=== PATIENT | male | born 1950 | race Caucasian/White ===

== ENCOUNTER 2019-02-01 06:52 | Day surgery (SDC) | payer BC, MEDICARE ==
[2019-02-01] MEDS ORDERED: Sodium Chloride 0.9% 1,000 ML IV SCH (07:30)
[2019-02-01] MEDS ORDERED: fentaNYL 100 MCG/2 ML SDV ONE (08:08)
[2019-02-01] MEDS ORDERED: Midazolam 1 MG/ML 2 ML SDV ONE (08:08)
[2019-02-01] MEDS ORDERED: Propofol 200 MG/20 ML SDV ONE ×5 (08:08→09:15)
[2019-02-01 11:04] VITALS: BP 140/92
--- NOTE | 2019-02-02 10:43 | PROC ---
DATE OF PROCEDURE: 02/01/2019 SURGEON: Neeraj Brown MD INDICATION: Amy is a 68-year-old male who comes in with a history of colonic polyps. He is in for a colonoscopy. The risks and benefits were explained to the patient. He was taken to the OR. PROCEDURE IN DETAIL: Anesthesia was given by nurse composing room machinist apprentice. During the procedure, we used 100 mcg of fentanyl, 2 mg of Versed, and 800 mg of propofol. The Olympus 180AL scope was used. It was placed in the rectum and advanced under direct vision. Examination of the rectum with a gloved finger was unremarkable, prior to the procedure. The tube was advanced; at 35 cm, noted a polyp, we advanced and got to the cecum. Upon retraction of the tube, we noted a polyp at 55 cm that was harvested with a polypectomy snare. We came back, at 50 cm, noted two more, one was harvested and the other one was snared and then was destroyed by cautery. There was bleeding noted at that area. Cautery was performed to stop the bleeding. We then retracted the tube back to 35 cm, noted a large polyp, 3 to 4 cm in size. This was snared, removed and harvested. The first three polyps were 7 mm in size. The fourth one was 1 cm in size. The tube was slowly retracted and good observation was done of the rest of the mucosa. No obvious pathology was noted. The tube was removed. The patient tolerated the procedure well. PREOPERATIVE DIAGNOSIS: History of polyps. POSTOPERATIVE DIAGNOSIS: Four polyps; one polyp at 55, two at 50, and one at 35 cm. Three were then sent to the pathologist for identification. This gentleman needs another colonoscopy in 1 to 3 years, depending on the results of the biopsies by the pathologist. Neeraj Brown MD /[id number]
== END 2019-02-01 11:00 | disposition home or self-care (01) ==
LOC: JP.SDS 06:52
PROVIDERS: ATTEND Internal Medicine
DX: Z12.11 Encounter for screening for malignant neoplasm of colon (principal); D12.5 Benign neoplasm of sigmoid colon; E78.5 Hyperlipidemia, unspecified; K21.9 Gastro-esophageal reflux disease without esophagitis; F32.9 Major depressive disorder, single episode, unspecified; G89.29 Other chronic pain; E66.9 Obesity, unspecified; Z68.41 Body mass index [BMI] 40.0-44.9, adult; Z88.8 Allergy status to other drugs, medicaments and biological substances; Z86.010 Personal history of colon polyps; Z87.891 Personal history of nicotine dependence
CPT/HCPCS: 45385; 45388; J2250; J2704; J3010; J7030; 88305

== ENCOUNTER 2019-09-04 02:51 | Emergency (ER) | payer BC, MEDICARE ==
[2019-09-04 03:16] VITALS: BP 171/96; PULSE 107
[2019-09-04] MEDS ORDERED: Sodium Chloride 0.9% 10 ML Syringe FLUSH PRN (03:25)
[2019-09-04] MEDS ORDERED: Ketorolac 30 MG/ML SDV IVPUSH ONE (03:26)
--- NOTE | 2019-09-04 03:32 | EDM.PDOC ---
ED HPI GENERAL MEDICAL PROBLEM - General Chief Complaint: Upper Extremity Injury/Pain Stated Complaint: LEFT SHOULDER DISLOCATED Time Seen by Provider: 09/04/19 03:15 Source of Information: Reports: Patient History Limitations: Reports: No Limitations - History of Present Illness INITIAL COMMENTS - FREE TEXT/NARRATIVE: 69 yo male here with a suspected L shoulder dislocation. Has a pHx of recurrent shoulder dislocations that he usually can reduce himself. Was getting into bed around 7pm tonight and he dislocated it and has not been able to reduce it. Drove himself to the ER. Onset: Sudden Onset Date: 09/03/19 Onset Time: 19:00 Duration: Hour(s):, Constant Location: Reports: Upper Extremity, Left Quality: Reports: Ache Severity: Moderate Improves with: Reports: Immobilization Worsens with: Reports: Movement Context: Reports: Other (See HPI) Associated Symptoms: Reports: No Other Symptoms Treatments TOBACCO SAMPLE PULLER: Reports: Other (see below) (none) Left Shoulder Pain Score (Numeric/FACES): 7 - Related Data Allergies Allergy/AdvReac Type Severity Reaction Status Date / Time Iodinated Contrast Media Allergy Itching Verified 09/04/19 02:56 [Iodinated Contrast Media - IV Dye] lisinopril Allergy Swelling Verified 09/04/19 02:56 Home Meds: Home Meds amLODIPine [Norvasc] 10 mg PO DAILY 10/02/13 [History] cloNIDine [Catapres] 0.6 mg PO QID 10/02/13 [History] Insulin Glargine,Hum.Rec.Anlog [Yareli Ruizostar] 36 unit SQ DAILY 01/30/19 [ History] Insulin Lispro [HumaLOG] 1 unit SQ ACBED PRN 01/30/19 [History] Levothyroxine [Synthroid] 100 mcg PO ACBREAKFAST 01/30/19 [History] Metoprolol Succinate 50 mg PO DAILY 01/30/19 [History] metFORMIN [Glucophage] 1,000 mg PO DAILY 01/30/19 [History] sitaGLIPtin Phos/Metformin HCl [Janumet 50-1,000 MG] 1 each PO DAILY 01/30/19 [ History] Doxepin HCl 150 mg PO BEDTIME 02/01/19 [History] atorvaSTATin Calcium [Atorvastatin Calcium] 10 mg PO DAILY 06/06/19 [History] Past Medical History HEENT History: Reports: Impaired Vision, Other (See Below) Other HEENT History: tinnitus. deviated septum Cardiovascular History: Reports: High Cholesterol, Hypertension Respiratory History: Reports: Bronchitis, Recurrent, Sleep Apnea Gastrointestinal History: Reports: Colon Polyp, Hemorrhoids Genitourinary History: Reports: Pyelonephritis, Other (See Below) Other Genitourinary History: some renal impairment Musculoskeletal History: Reports: Back Pain, Chronic, Fracture, Other (See Below ) Other Musculoskeletal History: fx L leg Neurological History: Reports: Concussion Psychiatric History: Reports: Depression Endocrine/Metabolic History: Reports: Diabetes, Type II, Hyperthyroidism, Obesity/BMI 30+ Dermatologic History: Reports: Other (See Below) Other Dermatologic History: 5 episodes of infection in blood - Infectious Disease History Infectious Disease History: Reports: Chicken Pox, Measles, Mumps - Past Surgical History HEENT Surgical History: Reports: Cataract Surgery Cardiovascular Surgical History: Reports: None Respiratory Surgical History: Reports: None GI Surgical History: Reports: Colonoscopy Male Surgical History: Reports: None Endocrine Surgical History: Reports: None Neurological Surgical History: Reports: Laminectomy, Other (See Below) Musculoskeletal Surgical History: Reports: Other (See Below) Other Musculoskeletal Surgeries/Procedures:: back surgeries x2 Social & Family History - Family History Family Medical History: Noncontributory - Tobacco Use Smoking Status *Q: Current Every Day Smoker Years of Tobacco use: 40 Packs/Tins Daily: 0.5 Used Tobacco, but Quit: Yes Month/Year Tobacco Last Used: February2019 Second Hand Smoke Exposure: No - Caffeine Use Caffeine Use: Reports: Soda - Alcohol Use Days Per Week of Alcohol Use: 0 - Recreational Drug Use Recreational Drug Use: No Review of Systems - Review of Systems Review Of Systems: See Below Constitutional: Reports: No Symptoms Musculoskeletal: Reports: Shoulder Pain (left) Skin: Reports: No Symptoms Neurological: Reports: No Symptoms ED EXAM, GENERAL - Physical Exam Exam: See Below Exam Limited By: No Limitations General Appearance: Alert, WD/WN, No Apparent Distress Extremities: Limited Range of Motion (L shoulder), Other (L shoulder appears grossly normal. Unable to raise L arm past horizontal. ). No: Normal Range of Motion, Non-Tender (some pain at rest L shoulder, more with movement attempts.) , No Pedal Edema Neurological: Alert, Oriented, CN II-XII Intact, Normal Cognition Psychiatric: Normal Affect, Normal Mood Skin Exam: Warm, Dry, Intact, Normal Color, No Rash Course - Vital Signs Text/Narrative:: sling applied. Last Recorded V/S: Last Vital Signs Temp 35.5 C 09/04/19 03:15 Pulse 107 H 09/04/19 03:15 Resp 16 09/04/19 03:15 BP 171/96 H 09/04/19 03:15 Pulse Ox 97 09/04/19 03:15 - Orders/Labs/Meds Orders: Active Orders 24 hr Category Date Time Status Sodium Chloride 0.9% [Saline Flush] Med 09/04/19 03:25 Active 10 ml FLUSH ASDIRECTED PRN Saline Lock Insert [OM.PC] Routine Oth 09/04/19 03:25 Ordered Medication Orders Sodium Chloride (Saline Flush) 10 ml FLUSH ASDIRECTED PRN PRN Reason: Keep Vein Open Last Admin: 09/04/19 03:46 Dose: 10 ml Meds: Medications Generic Name Dose Route Start Last Admin Trade Name Freq PRN Reason Stop Dose Admin Sodium Chloride 10 ml 09/04/19 03:25 09/04/19 03:46 Saline Flush FLUSH 10 ml ASDIRECTED PRN Administration Keep Vein Open Discontinued Medications Generic Name Dose Route Start Last Admin Trade Name Freq PRN Reason Stop Dose Admin Acetaminophen 1,000 mg 09/04/19 03:48 Tylenol Extra Strength PO 09/04/19 03:49 ONETIME ONE Ketorolac Tromethamine 15 mg 09/04/19 03:26 09/04/19 03:45 Toradol IVPUSH 09/04/19 03:27 15 mg ONETIME ONE Administration - Radiology Interpretation Free Text/Narrative:: L shoulder [id number]: 1. No acute osseous injuries or abnormalities are noted. Dictated by Alhaji Khalil MD @ 09/04/2019 3:47:40 AM Departure - Departure Time of Disposition: 04:05 Disposition: Home, Self-Care 01 Condition: Fair Clinical Impression: Rotator cuff dysfunction Qualifiers: Laterality: left Qualified Code(s): M67.912 - Unspecified disorder of synovium and tendon, left shoulder - Discharge Information *PRESCRIPTION DRUG MONITORING PROGRAM REVIEWED*: No *COPY OF PRESCRIPTION DRUG MONITORING REPORT IN PATIENT AMEYA: No Instructions: How to Use a Sling, [id number] Referrals: Neeraj Brown Sr, MD [Primary Care Provider] - Forms: ED Department Discharge Additional Instructions: Wear sling at all times. Take ibuprofen 400 mg every 6 hrs and acetaminophen 1000 mg every 6 hrs for pain relief. Follow up with orthopedics for further evaluation and treatment, someone will contact you with an appt. Sepsis Event Note - Evaluation Sepsis Screening Result: No Definite Risk - Focused Exam Vital Signs: Vital Signs Temp Pulse Resp BP Pulse Ox 09/04/19 03:15 35.5 C 107 H 16 171/96 H 97 Date Exam was Performed: 09/04/19 Time Exam was Performed: 03:51 - My Orders Last 24 Hours: My Active Orders 09/04/19 03:25 Sodium Chloride 0.9% [Saline Flush] 10 ml FLUSH ASDIRECTED PRN Saline Lock Insert [OM.PC] Routine - Assessment/Plan Last 24 Hours: My Active Orders 09/04/19 03:25 Sodium Chloride 0.9% [Saline Flush] 10 ml FLUSH ASDIRECTED PRN Saline Lock Insert [OM.PC] Routine
[2019-09-04] MEDS ORDERED: Acetaminophen 500 MG Tab PO ONE (03:48)
--- NOTE | 2019-09-04 03:49 | CRLCR ---
INDICATION: Shoulder pain TECHNIQUE: Shoulder radiograph 3 views left COMPARISON: 11/29/2016 FINDINGS: Bone: No acute fractures or aggressive bone lesions are identified. Joint: Joint space narrowing with subchondral mentation and large osteophytes are present in the glenohumeral joint, consistent with osteoarthritis. The appearance is similar to prior exam. The acromioclavicular joint is unremarkable. Soft tissue: Unremarkable. The visualized hemithorax is unremarkable in appearance. No radiopaque foreign bodies are seen. IMPRESSION: 1. No acute osseous injuries or abnormalities are noted. Dictated by Alhaji Khalil MD @ 09/04/2019 3:47:40 AM Dictated by: Alhaji Khalil MD @ 09/04/2019 03:47:46 (Electronically Signed)
== END 2019-09-04 04:10 | disposition home or self-care (01) ==
LOC: JP.ED 02:51
DX: M67.912 Unspecified disorder of synovium and tendon, left shoulder (principal); I10 Essential (primary) hypertension; E78.00 Pure hypercholesterolemia, unspecified; E11.9 Type 2 diabetes mellitus without complications; E66.9 Obesity, unspecified; F32.9 Major depressive disorder, single episode, unspecified; F17.210 Nicotine dependence, cigarettes, uncomplicated; Z88.8 Allergy status to other drugs, medicaments and biological substances; Z91.041 Radiographic dye allergy status; Z79.899 Other long term (current) drug therapy; Z79.4 Long term (current) use of insulin
CPT/HCPCS: 73030; 96374; 99283; A9270; J1885

== ENCOUNTER 2019-09-19 07:49 | Day surgery (SDC) | payer BC, MEDICARE ==
[~2019-09-19 07:49] MED LIST: Povidone-Iodine 10% Soln 118.25 ML Bottle ONE
[2019-09-19] MEDS: Nozin Nasal Sanitizer NASBOTH SCH ×4 (08:14→22:00)
[2019-09-19] MEDS ORDERED: fentaNYL 250 MCG/5 ML SDV ONE ×2 (08:21→13:41)
[2019-09-19] MEDS ORDERED: Dexamethasone 4 MG/ML SDV ONE (08:22)
[2019-09-19] MEDS ORDERED: Rocuronium 50 MG/5 ML Vial ONE ×2 (08:22→14:28)
[2019-09-19] MEDS ORDERED: Neostigmine Methylsulfate 1 MG/ML 5 ML Syringe ONE (08:22)
[2019-09-19] MEDS ORDERED: Propofol 200 MG/20 ML SDV ONE (08:22)
[2019-09-19] MEDS ORDERED: Succinylcholine 200 MG/10 ML MDV ONE (08:22)
[2019-09-19] MEDS ORDERED: Glycopyrrolate 0.2 MG/ML 5 ML MDV ONE (08:22)
[2019-09-19] MEDS ORDERED: Ondansetron 4 MG/2 ML SDV ONE (08:22)
[2019-09-19] MEDS ORDERED: ceFAZolin 2 GM in Premix Bag 1 BAG IV ONE (08:30)
[2019-09-19] MEDS ORDERED: Lactated Ringers 1,000 ML IV SCH (08:30)
[2019-09-19] MEDS ORDERED: Bupivacaine 0.5% 30 ML SDV ONE (08:49)
[2019-09-19] MEDS ORDERED: Lidocaine 1% 2 ML ONE (12:51)
[2019-09-19] MEDS ORDERED: Lactated Ringers 1,000 ML ONE (13:16)
[2019-09-19] MEDS ORDERED: Labetalol 20 MG/4 ML Syringe ONE (13:38)
[2019-09-19] MEDS ORDERED: Bupivacaine 0.25% 10 ML SDV ONE (14:49)
[2019-09-19] MEDS ORDERED: HYDROmorphone 1 MG/ML Syringe ONE (15:00)
[2019-09-19] MEDS ORDERED: Acetaminophen/HYDROcodone 325-5 MG Tab PO PRN (15:29)
[2019-09-19] MEDS ORDERED: Acetaminophen 325 MG Tab PO PRN (15:29)
[2019-09-19] MEDS ORDERED: Insulin Lispro 100 Unit/ML 3 ML KwikPen SUBCUT PRN (15:35)
[2019-09-19] MEDS ORDERED: Morphine 2 MG/ML SYRINGE IVPUSH PRN (15:39)
[2019-09-19] MEDS ORDERED: Ondansetron 4 MG/2 ML SDV IVPUSH PRN (15:42)
[2019-09-19] MEDS ORDERED: Morphine 2 MG/ML SYRINGE IM ONE (16:00)
[2019-09-19] MEDS ORDERED: LORazepam 2 MG/ML SDV IVPUSH PRN (16:04)
[2019-09-19] MEDS: Sodium Chloride 0.9% 1,000 ML IV SCH (17:12)
[2019-09-19] MEDS: Ketorolac 30 MG/ML SDV IVPUSH SCH (19:32)
[2019-09-19] MEDS: cloNIDine 0.1 MG Tab PO SCH ×2 (19:32→21:59)
[2019-09-19] MEDS: metFORMIN 500 MG Tab PO SCH (19:32)
[2019-09-19] MEDS: ceFAZolin 1 GM in Premix Bag 1 BAG IV SCH (19:48)
[2019-09-19] MEDS ORDERED: Doxepin 25 MG Cap PO SCH (21:00)
[2019-09-19] MEDS: PAPAYA PO SCH (22:00)
[2019-09-19] MEDS: PROTEASE PO SCH (22:00)
[2019-09-19] MEDS: AMYLASE PO SCH (22:00)
[2019-09-19] MEDS: [UNRECOGNIZED DRUG - OTHER] PO SCH (22:00)
[2019-09-19] MEDS: Acetaminophen/oxyCODONE 325-5 MG Tab PO PRN (22:08)
[2019-09-20] MEDS: Sodium Chloride 0.9% 1,000 ML IV SCH ×2 (01:14→09:40)
[2019-09-20] MEDS: Ketorolac 30 MG/ML SDV IVPUSH SCH ×2 (01:15→08:04)
[2019-09-20] MEDS: Acetaminophen/oxyCODONE 325-5 MG Tab PO PRN ×2 (05:05→11:13)
[2019-09-20] MEDS: ceFAZolin 1 GM in Premix Bag 1 BAG IV SCH ×2 (05:06→12:58)
[2019-09-20] MEDS: cloNIDine 0.1 MG Tab PO SCH ×3 (05:08→16:46)
[2019-09-20] MEDS ORDERED: Levothyroxine 100 MCG Tab PO SCH (07:30)
[2019-09-20] MEDS: metFORMIN 500 MG Tab PO SCH ×2 (08:01→16:54)
[2019-09-20] MEDS ORDERED: Cetirizine 10 MG Tab PO SCH (09:00)
[2019-09-20] MEDS ORDERED: Insulin Glargine,Human Rec. Analog 100 Units/ML 3 ML Pen SUBCUT SCH (09:00)
[2019-09-20] MEDS ORDERED: Metoprolol Succinate 50 MG Tab.ER PO SCH (09:00)
[2019-09-20] MEDS ORDERED: amLODIPine 10 MG Tab PO SCH (09:00)
[2019-09-20] MEDS: Nozin Nasal Sanitizer NASBOTH SCH (09:47)
--- NOTE | 2019-09-20 09:50 | CRLCR ---
Indication: Postop left shoulder arthroplasty Technique: A single view was acquired Comparison: No prior postoperative study Findings: There has been interval placement of a left shoulder arthroplasty. There is no fracture of the surrounding osseous components or abnormal lucencies about the implant. Impression: Postop appearance, single-view portable study, status post left shoulder arthroplasty Dictated by Alvarado Ladd MD @ Sep 20 2019 9:48AM Signed by Dr. Alvarado Ladd @ Sep 20 2019 9:49AM
[2019-09-20] MEDS: PAPAYA PO SCH (10:42)
[2019-09-20] MEDS: AMYLASE PO SCH (10:42)
[2019-09-20] MEDS: PROTEASE PO SCH (10:42)
[2019-09-20] MEDS: [UNRECOGNIZED DRUG - OTHER] PO SCH (10:42)
[2019-09-20 15:36] VITALS: BP 111/52; PULSE 80
--- NOTE | 2019-09-20 17:20 | PCM.DCSUM1 ---
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 Diagnosis: Stroke: No Modified [place] Scale: No Symptoms at All Modified [place] Scale Score: 0 - Discharge Data Discharge Date: 09/20/19 Discharge Disposition: Home, Self-Care 01 Condition: Good - Referral to Home Health Date of Face to Face Encounter: 09/20/19 Primary Care Physician: Neeraj Brown Sr, MD - Discharge Diagnosis/Problem(s) (1) Status post total shoulder arthroplasty SNOMED Code(s): 177370055, [id number] ICD Code: Z96.619 - PRESENCE OF UNSPECIFIED ARTIFICIAL SHOULDER JOINT Status: Acute Qualifiers: Laterality: left Qualified Code(s): Z96.612 - Presence of left artificial shoulder joint - Patient Summary/Data Operative Procedure(s) Performed: Left total shoulder Consults: Consultations 09/19/19 15:29 PT Evaluation and Treatment [CONS] Routine Please Evaluate and Treat. PT Reason for Consult: Post op Ortho Shoulder surgery Pending Discharge: Yes, 2- -3 days Special Instructions: Schedule first outpatient P.T. appointment 3 - 5 days post discharge This query below is only for informational purposes and is not editable. PT Evaluation and Treatment [CONS] Routine Please Evaluate and Treat. PT Reason for Consult: Post op Ortho Surgery Pending Discharge: Yes Discharge Disposition: Home w Outpatient Therapy Special Instructions: no external rotation beyond neutral This query below is only for informational purposes and is not editable. 09/19/19 15:40 Consult to Occupational Therapy [OT Evaluation and Treatment] [CONS] Routine Please Evaluate and Treat. OT Reason for Consult: ADL's Special Instructions: ROM hand/wrist/elbow and ADLs This query below is only for informational purposes and is not editable. Admission Diagnosis/Problem: Osteoarthritis Hospital Course: 69 year old male admitted for left total shoulder arthroplasty, tolerated procedure without complication. Drain was inadvertently pulled post-op. Dressing was changed POD #1, no drainage from incision, minimal bloody drainage from drain site. Was up and independent and wanted to go home on the afternoon of POD #1. BP was stable and pain was controlled by po meds. Outpatient PT was arranged. - Patient Instructions Diet: Usual Diet as Tolerated Activity: Apply Ice Driving: Do Not Drive Showering/Bathing: Shower in AM Wound/Incision Care: Keep Operative Site/Wound Site Clean and Dry Notify Provider of: Fever, Increased Pain, Swelling and Redness, Drainage, Nausea and/or Vomiting - Discharge Plan *PRESCRIPTION DRUG MONITORING PROGRAM REVIEWED*: No *COPY OF PRESCRIPTION DRUG MONITORING REPORT IN PATIENT AMEYA: No Prescriptions/Med Rec: oxyCODONE HCl/Acetaminophen [Percocet 5-325 mg Tablet] 1 each PO Q4HR PRN #40 tablet PRN Reason: Pain Home Medications: Home Meds amLODIPine [Norvasc] 10 mg PO DAILY 10/02/13 [History] cloNIDine [Catapres] 0.6 mg PO QID 10/02/13 [History] Insulin Glargine,Hum.Rec.Anlog [Toujeo Max Solostar] 36 unit SQ DAILY 01/30/19 [ History] Insulin Lispro [HumaLOG] 1 unit SQ ACBED PRN 01/30/19 [History] Levothyroxine [Synthroid] 100 mcg PO ACBREAKFAST 01/30/19 [History] Metoprolol Succinate 50 mg PO DAILY 01/30/19 [History] metFORMIN [Glucophage] 1,000 mg PO DAILY 01/30/19 [History] sitaGLIPtin Phos/Metformin HCl [Janumet 50-1,000 MG] 1 each PO DAILY 01/30/19 [ History] Doxepin HCl 150 mg PO BEDTIME 02/01/19 [History] Amylase/Protease/Papain/Papaya [Papaya Enzyme Chewable Tablet] 1 tab PO BID [History] Cetirizine [ZyrTEC] 10 mg PO DAILY 09/19/19 [History] oxyCODONE HCl/Acetaminophen [Percocet 5-325 mg Tablet] 1 each PO Q4HR PRN #40 tablet 09/20/19 [Rx] Oxygen Therapy Mode: Room Air Referrals: Neeraj Young MD [Physician] - 10/04/19 10:45 am - Discharge Summary/Plan Comment DC Time >30 min.: No - Patient Data Vitals - Most Recent: Last Vital Signs Temp 36.5 C 09/20/19 15:00 Pulse 80 09/20/19 15:00 Resp 20 09/20/19 15:00 BP 111/52 L 09/20/19 15:00 Pulse Ox 95 09/20/19 15:00 Weight - Most Recent: 113.398 kg I&O - Last 24 hours: Intake & Output 09/20/19 09/20/19 09/20/19 06:59 14:59 22:59 Intake Total 2161 850 Output Total 450 600 500 Balance 1711 250 -500 Med Orders - Current: Current Medications Acetaminophen (Tylenol) 650 mg PO Q4H PRN PRN Reason: Pain/Fever Hydrocodone Bitart/Acetaminophen ([place] 325-5 Mg) 1 tab PO Q3H PRN PRN Reason: Pain Alogliptin Benzoate (Alogliptin) 12.5 mg PO DAILY@0800 [facility] Last Admin: 09/20/19 08:00 Dose: 12.5 mg Amlodipine Besylate (Norvasc) 10 mg PO DAILY [facility] Last Admin: 09/20/19 10:40 Dose: 10 mg Bandage/Support Products ( Nasal Manager Of Community Relations) 1 applic NASBOTH BID [facility] Stop: 09/26/19 21:01 Last Admin: 09/20/19 09:47 Dose: 1 applic Cetirizine HCl (Zyrtec) 10 mg PO DAILY [facility] Last Admin: 09/20/19 09:59 Dose: 10 mg Clonidine HCl (Catapres) 0.6 mg PO QID [facility] Last Admin: 09/20/19 16:46 Dose: Not Given Doxepin HCl (Sinequan) 150 mg PO BEDTIME [facility] Last Admin: 09/19/19 21:59 Dose: 150 mg Sodium Chloride (Normal Saline) 1,000 mls @ 125 mls/hr IV ASDIRECTED [facility] Last Admin: 09/20/19 09:40 Dose: 125 mls/hr Insulin Glargine (Lantus Solostar) 29 units SUBCUT DAILY [facility] Last Admin: 09/20/19 09:51 Dose: 29 unit Insulin Human Lispro (Humalog) 1 unit SUBCUT ACBED PRN PRN Reason: Hyperglycemia Levothyroxine Sodium (Synthroid) 100 mcg PO ACBREAKFAST [facility] Last Admin: 09/20/19 08:00 Dose: 100 mcg Lorazepam (Ativan) 2 mg IVPUSH Q8H PRN PRN Reason: Agitation Last Admin: 09/19/19 16:23 Dose: 2 mg Metformin HCl (Glucophage) 1,000 mg PO BIDMEALS [facility] Last Admin: 09/20/19 16:54 Dose: 1,000 mg Metoprolol Succinate (Toprol Xl) 50 mg PO DAILY [facility] Last Admin: 09/20/19 10:41 Dose: 50 mg Morphine Sulfate (Morphine) 2 mg IVPUSH Q1H PRN PRN Reason: Breakthrough Pain Ondansetron HCl (Zofran) 4 mg IVPUSH Q6H PRN PRN Reason: Nausea/Vomiting Oxycodone/Acetaminophen (Percocet 325-5 Mg) 1 - 2 tab PO Q4H PRN PRN Reason: Pain (severe 7-10) Last Admin: 09/20/19 11:13 Dose: 2 tab (Amylase/Protease/Papain/Papaya ( Enzyme Chewable Tab) Pom 0 each PO BID [facility] Last Admin: 09/20/19 10:42 Dose: Not Given Discontinued Medications Bandage/Support Products ( Nasal Manager Of Community Relations) 1 applic NASBOTH BID [facility] Stop: 09/20/19 00:38 Last Admin: 09/19/19 22:00 Dose: Not Given Bupivacaine HCl (Marcaine 0.5%) Confirm Administered Dose 60 ml .ROUTE .STK-MED ONE Stop: 09/19/19 08:50 Bupivacaine HCl (Sensorcaine-Mpf 0.25%) Confirm Administered Dose 10 ml .ROUTE .STK-MED ONE Stop: 09/19/19 14:50 Last Admin: 09/19/19 14:54 Dose: 10 ml Dexamethasone (Dexamethasone) Confirm Administered Dose 4 mg .ROUTE .STK-MED ONE Stop: 09/19/19 08:23 Fentanyl (Sublimaze) Confirm Administered Dose 250 mcg .ROUTE .STK-MED ONE Stop: 09/19/19 08:22 Fentanyl (Sublimaze) Confirm Administered Dose 250 mcg .ROUTE .STK-MED ONE Stop: 09/19/19 13:42 Glycopyrrolate (Robinul) Confirm Administered Dose 1 mg .ROUTE .STK-MED ONE Stop: 09/19/19 08:23 Hydromorphone HCl (Dilaudid) 1 mg .ROUTE .STK-MED ONE Stop: 09/19/19 15:01 Cefazolin Sodium/Dextrose 2 gm (/ Premix) 50 mls @ 100 mls/hr IV ONETIME ONE Stop: 09/19/19 08:59 Last Admin: 09/19/19 10:32 Dose: 100 mls/hr Lactated Ringer's (Ringers, Lactated) 1,000 mls @ 75 mls/hr IV ASDIRECTED [facility] Last Admin: 09/19/19 09:03 Dose: 75 mls/hr Lidocaine HCl (Xylocaine-Mpf 1%) Confirm Administered Dose 2 mls @ as directed .ROUTE .STK-MED ONE Stop: 09/19/19 12:52 Lactated Ringer's (Ringers, Lactated) Confirm Administered Dose 1,000 mls @ as directed .ROUTE .STK-MED ONE Stop: 09/19/19 13:17 Cefazolin Sodium/Dextrose 1 gm (/ Premix) 50 mls @ 200 mls/hr IV Q8H [facility] Stop: 09/20/19 12:14 Last Admin: 09/20/19 12:58 Dose: 200 mls/hr Ketorolac Tromethamine (Toradol) 15 mg IVPUSH Q6H [facility] Stop: 09/20/19 08:01 Last Admin: 09/20/19 08:04 Dose: 15 mg Labetalol HCl (Normodyne) Confirm Administered Dose 20 mg .ROUTE .STK-MED ONE Stop: 09/19/19 13:39 Morphine Sulfate (Morphine) 2 mg IM ONETIME ONE Stop: 09/19/19 16:01 Last Admin: 09/19/19 18:09 Dose: Not Given Neostigmine Methylsulfate (Neostigmine) Confirm Administered Dose 5 mg .ROUTE .STK-MED ONE Stop: 09/19/19 08:23 Ondansetron HCl (Zofran) Confirm Administered Dose 4 mg .ROUTE .STK-MED ONE Stop: 09/19/19 08:23 Povidone Iodine (Betadine 10% Soln) Confirm Administered Dose 1 ml .ROUTE .STK- MED ONE Stop: 09/19/19 07:16 Last Admin: 09/19/19 13:51 Dose: 40 ml Propofol (Diprivan 20 Ml) Confirm Administered Dose 200 mg .ROUTE .STK-MED ONE Stop: 09/19/19 08:23 Rocuronium [place] (Zemuron) Confirm Administered Dose 50 mg .ROUTE .STK-MED ONE Stop: 09/19/19 08:23 Rocuronium [place] (Zemuron) Confirm Administered Dose 50 mg .ROUTE .STK-MED ONE Stop: 09/19/19 14:29 Succinylcholine Chloride (Quelicin) Confirm Administered Dose 200 mg .ROUTE .STK -MED ONE Stop: 09/19/19 08:23
--- NOTE | 2019-10-08 13:38 | OR ---
DATE OF PROCEDURE: 09/19/2019 SURGEON: Neeraj Young MD PREOPERATIVE DIAGNOSIS: Osteoarthritis of left shoulder. POSTOPERATIVE DIAGNOSES: End-stage osteoarthritis of left shoulder with large humeral osteophyte. PROCEDURE: Left total shoulder arthroplasty using Kim trabecular metal components. INDICATIONS: Amy is a very pleasant 69-year-old gentleman with a history of progressive pain, loss of range of motion of the left shoulder. Examination and imaging are consistent with an intact rotator cuff and severe osteoarthritis with joint space collapse and large humeral osteophyte. He now presents for left total shoulder arthroplasty. Risks, benefits, and potential complications of the procedure were discussed. PROCEDURE IN DETAIL: After adequate anesthesia was obtained, the patient was placed in a modified beach-chair position. Left shoulder and arm were prepped and draped in a sterile fashion. Anterior incision was made and carried down through the subcutaneous tissues. Hemostasis obtained with electrocautery. Dissection carried down to the deltopectoral interval. Cephalic vein was identified and retracted laterally with the deltoid. Self- retaining retractor was placed beneath the conjoined tendon and deltoid. Subscapularis was divided approximately a centimeter from its insertion. Tag sutures were placed and used to retract the tendon medially. Capsule was released from the anterior head and neck. An extensive osteophyte was present, and this was removed with a rongeur. Retractor was placed over the superior aspect of the humeral head, protecting the rotator cuff and the canal was then entered with a hand awl. Canal was then sequentially reamed. Last reamer was left in place, and the cutting jig was secured to this. Jig was aligned and secured with pins, and the humeral head was then cut with an oscillating saw. Proximal humerus was then broached, and the trial humeral stem was placed with good position and left in place. Retractors then placed about the glenoid. Glenoid labrum was excised. Center portion of the glenoid was identified. Drill guide was placed, and a guide pin was then drilled into the glenoid. This was followed by a reamer. Glenoid was then reamed by hand, removing the remaining articular cartilage down to good subchondral bone. Drill guides were then placed for the trabecular peg holes. Final osteotome was used. Glenoid was irrigated, and the trabecular metal base plate and polyethylene were then tapped into position. Position was confirmed visually and by palpation. Attention was then returned to the humerus. A trial offset humeral head was selected. This was placed, and the head was reduced. It showed slight increased tension, and the next smaller height trial was placed, which provided good stability with better tension. The trials were removed. Humerus was irrigated, and the final trabecular metal stem was tapped into position. The offset head was then placed and tapped into position. The arm was reduced, again taken through range of motion, and found to be very stable with approximately 50% play anterior to posterior. The arm was then irrigated with pulse lavage. This was followed by irrigation with a dilute Betadine solution, which was left in place for approximately 2-1/2 minutes. This was irrigated out. Subscapularis was then repaired in interrupted fashion with the #2 Ethibond and oversewn with 0 Vicryl in a running locking fashion. Arm was taken through range of motion. 30 degrees of external rotation could be obtained easily without tension on the repair. A drain was placed and brought out through a separate stab incision inferior to the incision. Incision was then closed with 2-0 Vicryl and a running 3-0 Monocryl and Steri-Strips were applied. Sterile dressing was then placed. The patient tolerated the procedure well. There were no complications, taken from the operating room in stable condition. Neeraj Young MD /[id number]
== END 2019-09-20 18:01 | disposition home or self-care (01) ==
LOC: JP.SDS 07:49 → JP.SDSSCHI 15:29 → UNDOADMOB 15:29 → JP.MS 15:29 → UNDODISOB 09-20 18:00 → JP.SDS 09-20 18:01
PROVIDERS: ATTEND Specialist
DX: M19.012 Primary osteoarthritis, left shoulder (principal); M25.712 Osteophyte, left shoulder; I10 Essential (primary) hypertension; E11.9 Type 2 diabetes mellitus without complications; M19.90 Unspecified osteoarthritis, unspecified site; E78.5 Hyperlipidemia, unspecified; E03.9 Hypothyroidism, unspecified; F32.9 Major depressive disorder, single episode, unspecified; E66.9 Obesity, unspecified; Z88.8 Allergy status to other drugs, medicaments and biological substances; Z91.041 Radiographic dye allergy status; Z79.4 Long term (current) use of insulin; Z79.899 Other long term (current) drug therapy; Z68.41 Body mass index [BMI] 40.0-44.9, adult
CPT/HCPCS: 23472; 51798; 73020; 82962; 97110; 97161; 97165; 97530; 97535; A9270; C1776; J0330; J0690; J1100; J1170; J1815; J1885; J2001; J2060; J2405; J2704; J2710; J3010; J3490; J7030; J7120

== ENCOUNTER 2020-08-20 09:09 | Day surgery (SDC) | payer BC, MEDICARE ==
--- NOTE | 2020-08-20 09:29 | EDM.PDOC ---
ED HPI GENERAL MEDICAL PROBLEM - General Chief Complaint: Lower Extremity Injury/Pain Stated Complaint: FELL AT OUTDOORS Time Seen by Provider: 08/20/20 09:23 Source of Information: Reports: Patient, Family, RN Notes Reviewed History Limitations: Reports: No Limitations - History of Present Illness INITIAL COMMENTS - FREE TEXT/NARRATIVE: 70-year-old gentleman presents emergency department with a complaint of right ankle pain, he accidentally slipped on the ice this morning twisting of the ankle inward heard a pop now cannot bear weight. Denies any other injury no loss of consciousness no head injury Right Ankle Pain Score (Numeric/FACES): 3 - Related Data Allergies Allergy/AdvReac Type Severity Reaction Status Date / Time Iodinated Contrast Media Allergy Itching Verified 09/17/19 09:43 [Iodinated Contrast Media - IV Dye] lisinopril Allergy Swelling Verified 09/17/19 09:43 Home Meds: Home Meds amLODIPine [Norvasc] 10 mg PO DAILY 10/02/13 [History] cloNIDine [Catapres] 0.6 mg PO QID 10/02/13 [History] Insulin Glargine,Hum.Rec.Anlog [Toujeo Max Solostar] 36 unit SQ DAILY 01/30/19 [History] Insulin Lispro [HumaLOG] 1 unit SQ ACBED PRN 01/30/19 [History] Levothyroxine [Synthroid] 100 mcg PO ACBREAKFAST 01/30/19 [History] Metoprolol Succinate 50 mg PO DAILY 01/30/19 [History] metFORMIN [Glucophage] 1,000 mg PO DAILY 01/30/19 [History] sitaGLIPtin Phos/Metformin HCl [Janumet 50-1,000 MG] 1 each PO DAILY 01/30/19 [History] Doxepin HCl 150 mg PO BEDTIME 02/01/19 [History] Amylase/Protease/Papain/Papaya [Papaya Enzyme Chewable Tablet] 1 tab PO BID 09/19/19 [History] Cetirizine [ZyrTEC] 10 mg PO DAILY 09/19/19 [History] Past Medical History HEENT History: Reports: Impaired Vision, Other (See Below) Other HEENT History: tinnitus. deviated septum Cardiovascular History: Reports: High Cholesterol, Hypertension Respiratory History: Reports: Bronchitis, Recurrent, Sleep Apnea Gastrointestinal History: Reports: Chronic Constipation, Colon Polyp, Hemorrhoids Genitourinary History: Reports: Pyelonephritis, Other (See Below) Other Genitourinary History: some renal impairment Musculoskeletal History: Reports: Back Pain, Chronic, Fracture, Other (See Below) Other Musculoskeletal History: fx lt leg FX Neurological History: Reports: Concussion Psychiatric History: Reports: Depression Endocrine/Metabolic History: Reports: Diabetes, Type II, Hyperthyroidism, Obesity/BMI 30+ Dermatologic History: Reports: Seborrheic Dermatitis, Other (See Below) Other Dermatologic History: 5 episodes of infection in blood after back surgery 1991 - Infectious Disease History Infectious Disease History: Reports: Chicken Pox, Measles, Mumps, Rubella - Past Surgical History HEENT Surgical History: Reports: Cataract Surgery Cardiovascular Surgical History: Reports: None Respiratory Surgical History: Reports: None GI Surgical History: Reports: Colonoscopy Male Surgical History: Reports: None Endocrine Surgical History: Reports: None Neurological Surgical History: Reports: Laminectomy, Other (See Below) Other Neurological Surgeries/Procedures: lami x 5. Richard procedure back, fusion and plate. spondylothsis Musculoskeletal Surgical History: Reports: Shoulder Replacement Other Musculoskeletal Surgeries/Procedures:: LTSA 09/19/19 Dermatological Surgical History: Reports: None Social & Family History - Family History Family Medical History: No Pertinent Family History Cardiac: Reports: [place] Respiratory: Reports: COPD Musculoskeletal: Reports: Back pain, Chronic Endocrine/Metabolic: Reports: Diabetes, type II - Tobacco Use Tobacco Use Status *Q: Former Tobacco User Used Tobacco, but Quit: Yes Month/Year Tobacco Last Used: years ago - Caffeine Use Caffeine Use: Reports: None - Recreational Drug Use Recreational Drug Use: No Review of Systems - Review of Systems Review Of Systems: See Below Musculoskeletal: Reports: Joint Pain (Ankle pain) ED EXAM, GENERAL - Physical Exam Exam: See Below Free Text/Narrative:: Examination of the right ankle I do appreciate some edema he will not tolerate much of exam as there is palpation around the malleolus bilaterally pedal pulses +2 sensation is intact he has limited range of motion secondary to pain Exam Limited By: No Limitations General Appearance: Alert, WD/WN, No Apparent Distress Course - Vital Signs Last Recorded V/S: Last Vital Signs Temp 99.6 F 08/20/20 09:25 Pulse 81 08/20/20 09:25 Resp 20 08/20/20 09:25 BP 152/84 H 08/20/20 09:25 Pulse Ox 97 08/20/20 09:25 - Orders/Labs/Meds Orders: Active Orders 24 hr Category Date Time Status EKG Documentation Completion [RC] ASDIRECTED Care 08/20/20 10:37 Active BASIC METABOLIC PANEL,BMP [CHEM] Urgent Lab 08/20/20 10:37 Ordered CBC WITH AUTO DIFF [HEME] Stat Lab 08/20/20 10:37 Ordered EKG 12 Lead [EK] Stat Ther 08/20/20 10:37 Ordered Departure - Departure Time of Disposition: 10:41 (Thanks so) Disposition: Admitted As Inpatient 66 Condition: Fair Clinical Impression: Tibia/fibula fracture Qualifiers: Encounter type: initial encounter Fracture type: closed Laterality: right Qualified Code(s): S82.201A - Unspecified fracture of shaft of right tibia, initial encounter for closed fracture; S82.401A - Unspecified fracture of shaft of right fibula, initial encounter for closed fracture - Discharge Information Referrals: Neeraj Brown Sr, MD [Primary Care Provider] - Forms: ED Department Discharge Sepsis Event Note (ED) - Evaluation Sepsis Screening Result: No Definite Risk - Focused Exam Vital Signs: Vital Signs Temp Pulse Resp BP Pulse Ox 08/20/20 09:25 99.6 F 81 20 152/84 H 97 08/20/20 09:17 99.6 F 81 20 152/84 H 97 - My Orders Last 24 Hours: My Active Orders 08/20/20 10:37 EKG Documentation Completion [RC] ASDIRECTED BASIC METABOLIC PANEL,BMP [CHEM] Urgent CBC WITH AUTO DIFF [HEME] Stat EKG 12 Lead [EK] Stat - Assessment/Plan Last 24 Hours: My Active Orders 08/20/20 10:37 EKG Documentation Completion [RC] ASDIRECTED BASIC METABOLIC PANEL,BMP [CHEM] Urgent CBC WITH AUTO DIFF [HEME] Stat EKG 12 Lead [EK] Stat Plan: Assessment Acuity = acute Site and laterality = fracture tib-fib from the malleolus with subluxation Etiology = secondary to fall Manifestations = none Location of injury = Home Lab values = x-ray describes fracture above basic lab work and EKG are pending Plan Call discussed case with Dr. Young at 1030 he kindly agreed to come and evaluate patient in the emergency department for surgical intervention This note was dictated using [employer] voice recognition software please call with any questions on syntax or grammar.
--- NOTE | 2020-08-20 09:55 | CR ---
Ankle Min 3V Rt CLINICAL HISTORY: Fall, pain FINDINGS: There is a displaced fractures of the distal fibula medial malleolus and the posterior plafond and with lateral subluxation of the talus. IMPRESSION: Displaced trimalleolar fracture with lateral talar subluxation
[2020-08-20] MEDS ORDERED: Bupivacaine 0.5% 30 ML SDV ONE (12:14)
[2020-08-20] MEDS ORDERED: Propofol 200 MG/20 ML SDV ONE (12:16)
[2020-08-20] MEDS ORDERED: Midazolam 1 MG/ML 2 ML SDV ONE ×2 (12:16→12:56)
[2020-08-20] MEDS ORDERED: fentaNYL 100 MCG/2 ML SDV ONE (12:16)
[2020-08-20] MEDS ORDERED: ceFAZolin 1 GM Vial ONE (12:17)
[2020-08-20] MEDS ORDERED: Sodium Chloride 0.9% 10 ML ONE (12:17)
[2020-08-20 16:26] VITALS: BP 147/88; PULSE 84
[2020-08-20] MEDS ORDERED: Acetaminophen/oxyCODONE 325-5 MG Tab PO PRN (16:27)
--- NOTE | 2020-08-25 13:19 | OR ---
DATE OF PROCEDURE: 08/20/2020 SURGEON: Neeraj Young MD PREOPERATIVE DIAGNOSIS: Displaced bimalleolar fracture, right ankle. POSTOPERATIVE DIAGNOSIS: Displaced bimalleolar fracture, right ankle. PROCEDURE: Open reduction and internal fixation of right ankle. ANESTHESIA: Spinal with sedation. HAND SPRING REPAIRER HELPER: VAISHNAVI Boyle. INDICATIONS: Mr. Degroot is a very pleasant 70-year-old gentleman who sustained a fall outside his home in the snow on ice resulting in injury to his right ankle. He presents to the emergency room with obvious deformity of the ankle and x-ray confirmed a bimalleolar fracture with lateral displacement. He is therefore admitted and taken to the operating room for open reduction and internal fixation. Risks, benefits, potential complications of the procedure were discussed. DESCRIPTION OF PROCEDURE: After adequate anesthesia was obtained, the patient was placed supine with a bump under the right hip. Tourniquet was placed about the right upper thigh. Right leg was prepped and draped in a sterile fashion. Leg was exsanguinated and tourniquet inflated to 300 mmHg pressure. A longitudinal incision was made over the lateral aspect of the ankle, exposing the fibular fracture. Retraction was accomplished with the aid of physician library serials assistant. Bone-holding clamp was used to reduce the fibular fracture after clearing soft tissues from the fracture site. Compression screw was then placed from anterior to posterior over-drilling the anterior cortex with a 3.5 drill bit. A contoured [employer] distal fibular plate was then utilized. This was secured to the fibula using locking screws distally and 3.5 cortical screws proximally again in compression. Good fixation was obtained with all screws. Final position was confirmed using fluoroscopy. Medial incision was then made, carried down through the subcutaneous tissues and the medial malleolar fracture was identified. Flap of periosteum was displaced into the fracture site and this was manipulated out using a periosteal elevator. The edges of the fracture were delineated and a tenaculum bone clamp was used to reduce the fracture. Two 4-0 partially- threaded cancellous screws were then placed with good purchase and final position was confirmed with fluoroscopy. Wounds were then irrigated with saline. Additional fixation was obtained medially with a [id number] 0 Vicryl suture placed through the deltoid ligament over the periosteum at the fracture and through the periosteum above the fracture site creating a tension band-type fixation of the periosteum. The skin was then closed with 2-0 Vicryl and a running 3-0 Monocryl. Lateral incision was closed with 0 Vicryl in the fascial layer, 2-0 Vicryl and a 3-0 Monocryl. Steri-Strips were applied. Sterile dressing was then placed. A well-padded AO plaster splint was placed with the foot in neutral position. The patient tolerated the procedure very well. There were no complications. He was taken from the operating room in a stable condition. Neeraj Young MD /[id number] MTDD
== END 2020-08-20 18:45 | disposition home or self-care (01) ==
LOC: JP.ED 09:09 → JP.SDS 12:05 → JP.MS 14:51 → JP.SDS 18:45
PROVIDERS: ATTEND Specialist
DX: S82.841A Displaced bimalleolar fracture of right lower leg, initial encounter for closed fracture (principal); E78.00 Pure hypercholesterolemia, unspecified; E66.9 Obesity, unspecified; E11.22 Type 2 diabetes mellitus with diabetic chronic kidney disease; I12.9 Hypertensive chronic kidney disease with stage 1 through stage 4 chronic kidney disease, or unspecified chronic kidney disease; N18.9 Chronic kidney disease, unspecified; E05.90 Thyrotoxicosis, unspecified without thyrotoxic crisis or storm; F32.9 Major depressive disorder, single episode, unspecified; Z87.891 Personal history of nicotine dependence; Z01.812 Encounter for preprocedural laboratory examination; Z20.828 Contact with and (suspected) exposure to other viral communicable diseases; W19.XXXA Unspecified fall, initial encounter; Z91.041 Radiographic dye allergy status; Z88.8 Allergy status to other drugs, medicaments and biological substances; Z79.899 Other long term (current) drug therapy; Z79.4 Long term (current) use of insulin
CPT/HCPCS: 27814; 36415; 73610; 76000; 80048; 85025; 87635; 93005; 99284; A9270; C1713; J0690; J2250; J3010; J3490; 93010; J2704; U0002

== ENCOUNTER 2023-01-13 09:02 | Emergency (ER) | payer BC, MEDICARE ==
[2023-01-13] MEDS ORDERED: Sodium Chloride 0.9% 10 ML Syringe FLUSH PRN ×2 (09:42→10:06)
[2023-01-13] MEDS ORDERED: Sodium Chloride 0.9% 1,000 ML IV SCH (09:45)
[2023-01-13 10:00] LABS: BASOPHILS ABSOLUTE AUTO 0.09 K/uL (0.00-0.10); BASOPHILS PERCENT AUTO 0.8 % (0.1-1.3); EOSINOPHILS ABSOLUTE AUTO 0.31 K/uL (0.00-0.40); EOSINOPHILS PERCENT AUTO 2.7 % (0.0-5.4); HEMATOCRIT 44.2 % (38.4-49.7); HEMOGLOBIN 15.1 g/dL (12.9-16.9); IMMATURE GRAN ABSOLUTE AUTO 0.06 K/uL (0.00-0.23); IMMATURE GRAN PERCENT AUTO 0.5 % (0.0-0.7); LYMPHOCYTES PERCENT AUTO 21.6 % (11.4-47.7); MEAN CORPUSCULAR HEMOGLOBIN 32.1 pg (31.6-35.5); MEAN CORPUSCULAR HGB CONC 34.2 g/dL (31.6-35.5); MEAN CORPUSCULAR VOLUME 93.8 fL (81.4-99.0); MONOCYTES ABSOLUTE AUTO 0.83 K/uL (0.20-0.90); MONOCYTES PERCENT AUTO 7.2 % (3.3-12.6); NEUTROPHILS ABSOLUTE AUTO 7.81 K/uL (1.0-7.6); NEUTROPHILS PERCENT AUTO 67.2 % (40.0-78.1); PLATELET COUNT,PLT 234 K/uL (130-375); RED BLOOD CELL COUNT 4.71 M/uL (4.14-5.76); WHITE BLOOD CELL COUNT,WBC 11.6 K/uL (3.2-11.0)
[2023-01-13 10:01] LABS: CREATININE 1.4 mg/dL (0.7-1.3); EST CRCL DRUG DOSING (CG) 43.04 mL/min
[2023-01-13] MEDS ORDERED: Sodium Chloride 0.9% 50 ML IV ONE (10:06)
[2023-01-13] MEDS ORDERED: Iopamidol 612 MG/ML 100 ML Bottle IV PRN (10:06)
[2023-01-13 10:16] LABS: CALCIUM 9.4 mg/dL (8.5-10.1)
[2023-01-13] MEDS ORDERED: fentaNYL 100 MCG/2 ML SDV IVPUSH ONE (10:30)
[2023-01-13 11:22] VITALS: BP 116/62; PULSE 78
== END 2023-01-13 12:54 | disposition home or self-care (01) ==
LOC: JP.ED 09:02
DX: S22.41XA Multiple fractures of ribs, right side, initial encounter for closed fracture (principal); I10 Essential (primary) hypertension; E11.9 Type 2 diabetes mellitus without complications; E05.90 Thyrotoxicosis, unspecified without thyrotoxic crisis or storm; E66.9 Obesity, unspecified; Z68.41 Body mass index [BMI] 40.0-44.9, adult; Z87.891 Personal history of nicotine dependence; Z88.8 Allergy status to other drugs, medicaments and biological substances; Z79.4 Long term (current) use of insulin; Z79.899 Other long term (current) drug therapy; W17.89XA Other fall from one level to another, initial encounter
CPT/HCPCS: 36415; 71260; 80048; 85025; 96361; 96374; 99285; J3010; J3490; J7030; Q9967

== ENCOUNTER 2023-06-08 12:01 | Emergency (ER) | payer BC, MEDICARE ==
[2023-06-08 18:33] VITALS: BP 193/96; PULSE 84
[2023-06-08] MEDS: Ketorolac 30 MG/ML SDV IM ONE (18:52)
[2023-06-08] MEDS: Methocarbamol 500 MG Tab PO ONE (19:59)
[2023-06-08] MEDS: Gabapentin 100 MG Cap PO ONE (20:00)
== END 2023-06-08 20:07 | disposition home or self-care (01) ==
LOC: JP.ED 12:01
DX: M54.50 Low back pain, unspecified (principal); E11.9 Type 2 diabetes mellitus without complications; E66.9 Obesity, unspecified; I10 Essential (primary) hypertension; Z79.899 Other long term (current) drug therapy
CPT/HCPCS: 72100; 96372; 99283; A9270; J1885

== ENCOUNTER 2024-01-09 13:48 | Emergency (ER) | payer BC, MEDICARE ==
[2024-01-09 16:38] LABS: BASOPHILS ABSOLUTE AUTO 0.11 K/uL (0.00-0.10); BASOPHILS PERCENT AUTO 0.7 % (0.1-1.3); EOSINOPHILS ABSOLUTE AUTO 0.35 K/uL (0.00-0.40); EOSINOPHILS PERCENT AUTO 2.4 % (0.0-5.4); HEMATOCRIT 40.8 % (38.4-49.7); HEMOGLOBIN 14.2 g/dL (12.9-16.9); IMMATURE GRAN PERCENT AUTO 0.7 % (0.0-0.7); LYMPHOCYTES ABSOLUTE AUTO 3.03 K/uL (0.8-3.3); LYMPHOCYTES PERCENT AUTO 20.6 % (11.4-47.7); MEAN CORPUSCULAR HEMOGLOBIN 31.7 pg (31.6-35.5); MEAN CORPUSCULAR HGB CONC 34.8 g/dL (31.6-35.5); MEAN CORPUSCULAR VOLUME 91.1 fL (81.4-99.0); MONOCYTES ABSOLUTE AUTO 1.03 K/uL (0.20-0.90); NEUTROPHILS ABSOLUTE AUTO 10.08 K/uL (1.0-7.6); NEUTROPHILS PERCENT AUTO 68.6 % (40.0-78.1); PLATELET COUNT,PLT 282 K/uL (130-375); RED BLOOD CELL COUNT 4.48 M/uL (4.14-5.76); WHITE BLOOD CELL COUNT,WBC 14.7 K/uL (3.2-11.0)
[2024-01-09] MEDS ORDERED: Sodium Chloride 0.9% 10 ML Syringe FLUSH ONE (16:53)
[2024-01-09] MEDS ORDERED: Iopamidol 612 MG/ML 100 ML Bottle IV ONE (16:53)
[2024-01-09] MEDS: Sodium Chloride 0.9% 10 ML Syringe FLUSH PRN (16:53)
[2024-01-09 17:01] LABS: A/G RATIO 0.8 (1.2-2.2); ALANINE AMINOTRANSFERASE,ALT 22 U/L (12-78); ALBUMIN 3.3 g/dL (3.4-5.0); ALKALINE PHOSPHATASE 73 U/L (46-116); ASPARTATE AMNIOTRANSFERASE,AST 10 U/L (15-37); BILIRUBIN TOTAL 0.4 mg/dL (0.2-1.0); BLOOD UREA NITROGEN,BUN 26 mg/dL (7-18); CALCIUM 10.1 mg/dL (8.5-10.1); CARBON DIOXIDE,CO2 30 mmol/L (21-32); CHLORIDE,CL 99 mmol/L (100-108); CREATININE 1.6 mg/dL (0.8-1.3); EST CRCL DRUG DOSING (CG) 37.11 mL/min; ESTIMATED GFR 45 mL/min (>60); GLUCOSE RANDOM 173 mg/dL (74-106); POTASSIUM,K 4.3 mmol/L (3.6-5.2); PROTEIN TOTAL,TP 7.6 g/dL (6.4-8.2); SODIUM,NA 134 mmol/L (140-148); TROPONIN I HIGH SENSITIVITY 9.9 pg/mL (<=60.3)
[2024-01-09 17:02] LABS: ANION GAP 9.3 mmol/L (5.0-14.0)
[2024-01-09] MEDS: Sodium Chloride 0.9% 100 ML IV ONE (17:31)
[2024-01-09] MEDS: Iopamidol 755 Mg/ML 100 ML Bottle IV SCH (17:31)
[2024-01-09 19:49] LABS: APPEARANCE,URINE CLEAR (CLEAR); BILIRUBIN,URINE NEGATIVE (NEGATIVE); COLOR,URINE YELLOW (YELLOW); GLUCOSE,URINE NEGATIVE (NEGATIVE); KETONES,URINE NEGATIVE (NEGATIVE); LEUKOCYTE ESTERASE,URINE NEGATIVE (NEGATIVE); NITRITE,URINE NEGATIVE (NEGATIVE); OCCULT BLOOD,URINE NEGATIVE (NEGATIVE); PH,URINE 5.5 (5.0-8.0); PROTEIN,URINE NEGATIVE (NEGATIVE); UROBILINOGEN,URINE 0.2 EU/dL (0.2-1.0)
[2024-01-09 19:52] LABS: AMORPHOUS SEDIMENT,URINE MODERATE; BACTERIA,URINE FEW; EPITHELIAL CELLS,URINE FEW; MUCUS,URINE NOT SEEN; RBC,URINE NOT SEEN (0-5); WBC,URINE NOT SEEN (0-5)
[2024-01-09 21:42] VITALS: BP 160/67; PULSE 55
== END 2024-01-09 21:37 | disposition home or self-care (01) ==
LOC: JP.ED 13:48
DX: R26.81 Unsteadiness on feet (principal); R53.1 Weakness; R29.6 Repeated falls; I10 Essential (primary) hypertension; E11.9 Type 2 diabetes mellitus without complications; F17.210 Nicotine dependence, cigarettes, uncomplicated; Z79.4 Long term (current) use of insulin; Z79.899 Other long term (current) drug therapy; Z88.8 Allergy status to other drugs, medicaments and biological substances
CPT/HCPCS: 36415; 70450; 70496; 70498; 71045; 80053; 80307; 81001; 83605; 84484; 85025; 93005; 99284; J3490; Q9967; 93010; 99285

== ENCOUNTER 2024-10-17 06:57 | Inpatient (IN) | payer BC, MEDICARE ==
[2024-10-17] MEDS ORDERED: fentaNYL 100 MCG/2 ML SDV ONE (07:13)
[2024-10-17] MEDS ORDERED: Propofol 200 MG/20 ML SDV ONE ×4 (07:13→09:54)
[2024-10-17] MEDS ORDERED: Midazolam 1 MG/ML 2 ML SDV ONE ×2 (07:13→10:01)
[2024-10-17] MEDS: Lactated Ringers 1,000 ML IV SCH (07:38)
[2024-10-17 07:54] LABS: HEMATOCRIT 43.6 % (38.4-49.7); HEMOGLOBIN 15.1 g/dL (12.9-16.9); MEAN CORPUSCULAR HEMOGLOBIN 31.7 pg (31.6-35.5); MEAN CORPUSCULAR HGB CONC 34.6 g/dL (31.6-35.5); MEAN CORPUSCULAR VOLUME 91.6 fL (81.4-99.0); RED BLOOD CELL COUNT 4.76 M/uL (4.14-5.76); WHITE BLOOD CELL COUNT,WBC 11.8 K/uL (3.2-11.0)
[2024-10-17] MEDS: Nozin Nasal Sanitizer NASBOTH SCH ×2 (07:55→20:25)
[2024-10-17 08:09] LABS: ANION GAP 12.1 mmol/L (5.0-14.0); CALCIUM 8.8 mg/dL (8.5-10.1); CREATININE 1.2 mg/dL (0.8-1.3); EST CRCL DRUG DOSING (CG) 48.74 mL/min; POTASSIUM,K 4.1 mmol/L (3.6-5.2)
[2024-10-17] MEDS ORDERED: oxyCODONE 5 MG Tab PO PRN (08:24)
[2024-10-17] MEDS ORDERED: Ondansetron 4 MG/2 ML SDV IVPUSH PRN (08:25)
[2024-10-17] MEDS ORDERED: Magnesium Hydroxide 400 MG/5 ML Susp 30 ML Cup PO PRN (08:25)
[2024-10-17] MEDS: ceFAZolin 2 GM in Premix Bag 1 BAG IV ONE (08:35)
[2024-10-17] MEDS: Tranexamic Acid 1,000 MG in Sodium Chloride 0.9% 50 ML IV ONE (08:50)
[2024-10-17] MEDS ORDERED: SITAGLIPTIN PHOS PO SCH (09:00)
[2024-10-17] MEDS ORDERED: [UNRECOGNIZED DRUG - OTHER] PO SCH (09:00)
[2024-10-17] MEDS ORDERED: Non-Formulary Medication 1 Each (Insulin Glargine,Hum.Rec.Anlog [Toujeo Solostar] 300 UNIT SQ SCH (09:00)
[2024-10-17] MEDS ORDERED: Non-Formulary Medication 1 Each (Insulin Glargine,Hum.Rec.Anlog [Toujeo Solostar] 300 UNIT SUBCUT SCH (09:00)
[2024-10-17] MEDS ORDERED: METFORMIN HCL PO SCH (09:00)
[2024-10-17] MEDS: Bupivacaine 0.5% 50 ML MDV ONE (10:11)
[2024-10-17] MEDS: Morphine 2 MG/ML SYRINGE IVPUSH PRN (11:46)
[2024-10-17] MEDS: amLODIPine 5 MG Tab PO SCH (11:50)
[2024-10-17] MEDS: Acetaminophen 325 MG Tab PO SCH (11:50)
[2024-10-17] MEDS: oxyCODONE 5 MG Tab PO PRN (12:10)
[2024-10-17] MEDS: Non-Formulary Medication 1 Each (Glucosamine [Glucosamine Sulfate] 500 MG Cap) PO SCH (12:27)
[2024-10-17] MEDS: Ketorolac 30 MG/ML SDV IVPUSH PRN (13:17)
[2024-10-17] MEDS: Gabapentin 300 MG Cap PO SCH (13:21)
[2024-10-17] MEDS ORDERED: Naloxone 0.4 MG/ML SDV IVPUSH PRN (13:29)
[2024-10-17] MEDS: HYDROmorphone 1 MG/ML Syringe IVPUSH ONE (13:41)
[2024-10-17] MEDS: cloNIDine 0.1 MG Tab PO SCH (14:24)
[2024-10-17] MEDS: Sodium Chloride 0.9% 1,000 ML IV SCH (14:27)
[2024-10-17] MEDS: ceFAZolin 2 GM in Premix Bag 1 BAG IV SCH (16:03)
[2024-10-17] MEDS: metFORMIN 500 MG Tab PO SCH (17:13)
[2024-10-17] MEDS: DOXEPIN 150 MG PO SCH (20:26)
[2024-10-17] MEDS ORDERED: DOXEPIN HCL 150 MG PO SCH (21:00)
[2024-10-18] MEDS: traMADol 50 MG Tab PO PRN (03:16)
[2024-10-18] MEDS: Levothyroxine 100 MCG Tab PO SCH (07:39)
[2024-10-18] MEDS: JANUMET PO SCH (07:45)
[2024-10-18] MEDS: Insulin Glargine,Human Rec. Analog 100 Units/ML 3 ML Pen SUBCUT SCH (08:08)
[2024-10-18] MEDS: Cholecalciferol (Vitamin D3) 25 MCG Tab PO SCH (09:27)
[2024-10-18] MEDS: Fish Oil/Omega-3 Fatty Acids 1 Gm Cap PO SCH (09:28)
[2024-10-18] MEDS: Aspirin 325 MG Tab.EC PO SCH (09:29)
[2024-10-18] MEDS: Metoprolol Succinate 50 MG Tab.ER PO SCH (09:33)
[2024-10-18] MEDS: Docusate Sodium 100 MG Cap PO PRN (09:42)
[2024-10-19] MEDS: Acetaminophen/HYDROcodone 325-5 MG Tab PO PRN (09:28)
[2024-10-19] MEDS: ceFAZolin 2 GM in Premix Bag 1 BAG IV ONE (10:36)
[2024-10-19] MEDS: FLU (Fluad Triv) TS24-25 (65UP)/MF59C/PF 45 MCG/0.5 ML Syringe IM ONE (13:54)
[2024-10-19 14:15] VITALS: BP 134/72; PULSE 78
== END 2024-10-19 14:55 | disposition home or self-care (01) | DRG 302 ==
LOC: JP.SDS 06:57 → JP.MS 08:25 → JP.SDS 10-18 11:26 → JP.MS 10-18 16:09
PROVIDERS: ADMIT Specialist; ATTEND Specialist
PROC: 0SRD069 Replacement of Left Knee Joint with Oxidized Zirconium on Polyethylene Synthetic Substitute, Cemented, Open Approach (ICD-10-PCS; principal; 2024-10-17 08:15)
PROC: 3E0234Z Introduction of Serum, Toxoid and Vaccine into Muscle, Percutaneous Approach (ICD-10-PCS; 2024-10-18)
DX: M17.12 Unilateral primary osteoarthritis, left knee (principal); I10 Essential (primary) hypertension; E11.9 Type 2 diabetes mellitus without complications; F32.A Depression, unspecified; E78.5 Hyperlipidemia, unspecified; E03.9 Hypothyroidism, unspecified; K21.9 Gastro-esophageal reflux disease without esophagitis; G89.4 Chronic pain syndrome; G47.33 Obstructive sleep apnea (adult) (pediatric); Z23 Encounter for immunization; Z98.1 Arthrodesis status; Z98.890 Other specified postprocedural states; Z88.8 Allergy status to other drugs, medicaments and biological substances
CPT/HCPCS: 36415; 73560-26-LT; 73560-LT; 76000; 80048; 82947; 85027; 90653; 97110-GP; 97116-GP; 97162-GP; 97165-GO; 97535-GO; A9270-GY; C1713; C1776; G0008; J0665; J0690; J1171; J1815-GY; J1885; J2250; J2270; J2704; J3010; J7030; J7120

== ENCOUNTER 2024-10-23 13:25 | Inpatient (IN) | payer BC, MEDICARE ==
[2024-10-23] MEDS ORDERED: Propofol 200 MG/20 ML SDV ONE (14:11)
[2024-10-23] MEDS ORDERED: Midazolam 1 MG/ML 2 ML SDV ONE (14:11)
[2024-10-23] MEDS ORDERED: fentaNYL 100 MCG/2 ML SDV ONE (14:11)
[2024-10-23 14:23] LABS: BASOPHILS ABSOLUTE AUTO 0.08 K/uL (0.00-0.10); BASOPHILS PERCENT AUTO 0.7 % (0.1-1.3); EOSINOPHILS ABSOLUTE AUTO 0.42 K/uL (0.00-0.40); EOSINOPHILS PERCENT AUTO 3.7 % (0.0-5.4); HEMATOCRIT 31.5 % (38.4-49.7); HEMOGLOBIN 10.7 g/dL (12.9-16.9); IMMATURE GRAN ABSOLUTE AUTO 0.11 K/uL (0.00-0.23); LYMPHOCYTES ABSOLUTE AUTO 1.47 K/uL (0.8-3.3); LYMPHOCYTES PERCENT AUTO 13.1 % (11.4-47.7); MEAN CORPUSCULAR HEMOGLOBIN 31.5 pg (31.6-35.5); MEAN CORPUSCULAR VOLUME 92.6 fL (81.4-99.0); MONOCYTES ABSOLUTE AUTO 0.86 K/uL (0.20-0.90); MONOCYTES PERCENT AUTO 7.6 % (3.3-12.6); NEUTROPHILS ABSOLUTE AUTO 8.32 K/uL (1.0-7.6); NEUTROPHILS PERCENT AUTO 73.9 % (40.0-78.1); PLATELET COUNT,PLT 325 K/uL (130-375); WHITE BLOOD CELL COUNT,WBC 11.3 K/uL (3.2-11.0)
[2024-10-23] MEDS: Lactated Ringers 1,000 ML IV SCH (14:41)
[2024-10-23 14:44] LABS: A/G RATIO 0.7 (1.2-2.2); ALANINE AMINOTRANSFERASE,ALT 15 U/L (12-78); ALBUMIN 2.9 g/dL (3.4-5.0); ALKALINE PHOSPHATASE 51 U/L (46-116); ANION GAP 13.4 mmol/L (5.0-14.0); ASPARTATE AMNIOTRANSFERASE,AST 21 U/L (15-37); BILIRUBIN TOTAL 0.5 mg/dL (0.2-1.0); BLOOD UREA NITROGEN,BUN 31 mg/dL (7-18); CARBON DIOXIDE,CO2 25 mmol/L (21-32); CHLORIDE,CL 102 mmol/L (100-108); CREATININE 1.6 mg/dL (0.8-1.3); EST CRCL DRUG DOSING (CG) 36.55 mL/min; ESTIMATED GFR 45 mL/min (>60); GLUCOSE RANDOM 115 mg/dL (74-106); POTASSIUM,K 4.4 mmol/L (3.6-5.2); SODIUM,NA 136 mmol/L (140-148)
[2024-10-23] MEDS ORDERED: Ondansetron 4 MG/2 ML SDV IVPUSH PRN (16:17)
[2024-10-23] MEDS ORDERED: ceFAZolin 2 GM in Sodium Chloride 0.9% 100 ML IV SCH (16:30)
[2024-10-23] MEDS ORDERED: Non-Formulary Medication 1 Each (Metformin [Glucophage] 1,000 MG Tablet) PO SCH (17:00)
[2024-10-23] MEDS ORDERED: Bupivacaine 0.5% 30 ML SDV ONE (17:00)
[2024-10-23] MEDS ORDERED: metFORMIN 500 MG Tab PO SCH (17:00)
[2024-10-23] MEDS: ceFAZolin 2 GM in Premix Bag 1 BAG IV ONE (17:10)
[2024-10-23] MEDS: Acetaminophen/HYDROcodone 325-5 MG Tab PO PRN (21:08)
[2024-10-23] MEDS: Ketorolac 30 MG/ML SDV IVPUSH PRN (21:10)
[2024-10-23] MEDS: Gabapentin 300 MG Cap PO SCH (21:17)
[2024-10-23] MEDS: DOXEPIN HCL 50 MG PO SCH (21:17)
[2024-10-23] MEDS: cloNIDine 0.1 MG Tab PO SCH (21:18)
[2024-10-23] MEDS: Nozin Nasal Sanitizer NASBOTH SCH (21:54)
[2024-10-23] MEDS: Sodium Chloride 0.9% 1,000 ML IV SCH (21:54)
[2024-10-23] MEDS: Acetaminophen 325 MG Tab PO SCH (23:31)
[2024-10-24] MEDS: Melatonin 3 MG Tab PO PRN (00:11)
[2024-10-24] MEDS: ceFAZolin 2 GM in Premix Bag 1 BAG IV SCH (02:13)
[2024-10-24] MEDS: Levothyroxine 100 MCG Tab PO SCH (07:59)
[2024-10-24] MEDS: amLODIPine 5 MG Tab PO SCH (08:00)
[2024-10-24] MEDS: Aspirin 325 MG Tab.EC PO SCH (08:00)
[2024-10-24] MEDS: Cholecalciferol (Vitamin D3) 25 MCG Tab PO SCH (08:01)
[2024-10-24] MEDS: Metoprolol Succinate 50 MG Tab.ER PO SCH (08:01)
[2024-10-24] MEDS: SITAGLIPTIN PHOS PO SCH (08:02)
[2024-10-24] MEDS: METFORMIN HCL PO SCH (08:02)
[2024-10-24] MEDS: Insulin Glargine,Human Rec. Analog 100 Units/ML 3 ML Pen SUBCUT SCH (08:05)
[2024-10-24] MEDS: Fish Oil/Omega-3 Fatty Acids 1 Gm Cap PO SCH (08:10)
[2024-10-24] MEDS ORDERED: SITAGLIPTIN PHOS PO SCH (09:00)
[2024-10-24] MEDS ORDERED: METFORMIN HCL PO SCH (09:00)
[2024-10-24] MEDS ORDERED: Non-Formulary Medication 1 Each (Insulin Glargine,Hum.Rec.Anlog [Toujeo Solostar] 300 UNIT SUBCUT SCH (09:00)
[2024-10-24] MEDS ORDERED: [UNRECOGNIZED DRUG - OTHER] PO SCH (09:00)
[2024-10-24] MEDS ORDERED: Non-Formulary Medication 1 Each (Glucosamine [Glucosamine Sulfate] 500 MG Cap) PO SCH (09:00)
[2024-10-24] MEDS ORDERED: Non-Formulary Medication 1 Each (Cholecalciferol (Vitamin D3) [Vitamin D3] 50 MCG Tablet) PO SCH (09:00)
[2024-10-24] MEDS: metFORMIN 500 MG Tab PO SCH (16:24)
[2024-10-25] MEDS: Morphine 2 MG/ML SYRINGE IVPUSH PRN (14:58)
[2024-10-26] MEDS: Docusate Sodium 100 MG Cap PO PRN (05:40)
[2024-10-26] MEDS: Magnesium Hydroxide 400 MG/5 ML Susp 30 ML Cup PO PRN (05:40)
[2024-10-26 12:05] VITALS: BP 113/59; PULSE 71
== END 2024-10-26 12:41 | DRG 813 ==
LOC: JP.MS 13:25
PROVIDERS: ADMIT Specialist; ATTEND Specialist
PROC: 0HBLXZZ Excision of Left Lower Leg Skin, External Approach (ICD-10-PCS; principal; 2024-10-23 16:00)
DX: T81.329A Deep disruption or dehiscence of operation wound, unspecified, initial encounter (principal); I10 Essential (primary) hypertension; E11.9 Type 2 diabetes mellitus without complications; F32.A Depression, unspecified; E78.5 Hyperlipidemia, unspecified; E03.9 Hypothyroidism, unspecified; G89.4 Chronic pain syndrome; K21.9 Gastro-esophageal reflux disease without esophagitis; M17.9 Osteoarthritis of knee, unspecified; G47.00 Insomnia, unspecified; Y83.8 Other surgical procedures as the cause of abnormal reaction of the patient, or of later complication, without mention of misadventure at the time of the procedure
CPT/HCPCS: 36415; 80053; 82947; 85025; 87070; 87075; 87205; 97110-GP; 97116-GP; 97161-GP; 97530-GP; A9270-GY; J0665; J0690; J1815-GY; J1885; J2250; J2270; J2704; J3010; J7030; J7120